=== PATIENT | male | born 1975 | race Caucasian/White ===

== ENCOUNTER 2018-06-26 17:40 | Emergency (ER) | payer SELFPAY ==
[~2018-06-26] VITALS: Ht 165.1 cm; Wt 95.3 kg
[2018-06-26 17:40] VITALS: BP 116/54
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
--- NOTE | 2018-06-26 17:59 | NUR ---
DR DURAN WITH PT FOR EVALUATION
[2018-06-26 18:10] VITALS: BP 116/54
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
== END 2018-06-26 18:10 ==
LOC: MED 17:40
DX: Z02.89 Encounter for other administrative examinations (principal); M79.601 Pain in right arm; M79.602 Pain in left arm; V89.2XXA Person injured in unspecified motor-vehicle accident, traffic, initial encounter; Y93.89 Activity, other specified; Y92.89 Other specified places as the place of occurrence of the external cause; Y99.8 Other external cause status
CPT/HCPCS: 99283